=== PATIENT | male | born 1980 | race Caucasian/White ===

== ENCOUNTER 2016-07-30 17:07 | Emergency (ER) | payer OTHER ==
[~2016-07-30] VITALS: Ht 172.7 cm; Wt 87.5 kg
[2016-07-30 17:23] VITALS: Ht 172.7 cm; Wt 87.5 kg
[2016-07-30] MEDS ORDERED: ACETAMINOPHEN 325 MG TAB PO STA (19:44)
[2016-07-30] MEDS ORDERED: DIPHENHYDRAMINE 25 MG CAP PO ONE (20:00)
--- NOTE | 2016-07-30 20:32 | ERD ---
ER Documentation Chief Complaint Date/Time DATE: 07/30/16 TIME: 20:23 Chief Complaint BITE FROM INSECTS IN GROIN AND LEGS DARK COLORED URINE HPI This 36-year-old male patient presents to emergency department today for evaluation of multiple insect bite with associated erythema, edema, and tenderness. Patient reports that he moved into a new house which had not been habits he did not "a while". States he was working out in the yard and bitten by unknown insects bilateral feet lower extremities upper extremities and penis. Patient states that he was working in the yard yesterday and woke this morning with hand swelling, penis swelling, blisters on his feet. Patient states he wash with soap and water and some of the blisters open. He denies fever, chills, nausea, vomiting, patient denies dysuria, difficulty voiding, hematuria. Patient denies possibility of STD reports monogamous relationship for the last 9 months. Denies pruritus. ROS All systems reviewed and are negative except as per history of present illness. Allergies Allergies: Coded Allergies: No Known Allergy (Unverified , 04/28/14) PMhx/Soc History of Surgery: No Anesthesia Reaction: No Hx Neurological Disorder: No Hx Respiratory Disorders: No Hx Cardiac Disorders: Yes (htn) Hx Psychiatric Problems: No Hx Miscellaneous Medical Probl: Yes (dm) Hx Alcohol Use: No Hx Substance Use: No Hx Tobacco Use: Yes Smoking Status: Heavy tobacco smoker Physical Exam Vitals Vital Signs Date Time Temp Pulse Resp B/P Pulse Ox O2 Delivery O2 Flow Rate FiO2 07/30/16 19:10 113 159/95 07/30/16 17:23 98.5 119 18 180/106 98 Vitals stable, triage notes reviewed Physical Exam Const: Well-appearing, no acute distress Head: Atraumatic Eyes: Normal Conjunctiva PERRLA, EOMI ENT: Normal External Ears, Nose and Mouth. Neck: . Resp: Respirations even and unlabored, no respiratory Cardio: Abd: Abdomen symmetric, soft, nontender, no epigastric tenderness Male genitalia: Normal male genitalia, circumcised, left penile shaft with erythema, spongy edema, and firmness. Testicles distended normal. No hernia, no visible ulcer, papule. Skin: Bilateral feet with scattered red erythematous kirby, right foot presents with bulla open blister, red, bilateral upper and lower extremities with scattered red papules. Papules are soft, erythemic, tender to palpation, non-umbilicated, no discharge. Back: Ext: Neur: Awake and alert Psych: Normal Mood and Affect Result Diagram: 07/30/162024 Results 24 hrs Laboratory Tests Test 07/30/16 20:00 07/30/16 20:25 Urine Color YELLOW Urine Clarity SLIGHTLY CLOUDY Urine pH 7.0 Urine Specific Jones 1.018 Urine Ketones NEGATIVEmg/dL Urine Nitrite NEGATIVEmg/dL Urine Bilirubin NEGATIVEmg/dL Urine Urobilinogen NEGATIVEmg/dL Urine Leukocyte Esterase NEGATIVELeu/ul Urine Microscopic RBC 0/HPF Urine Microscopic WBC 1/HPF Urine Hemoglobin NEGATIVEmg/dL Urine Glucose NEGATIVEmg/dL Urine Total Protein NEGATIVEmg/dl White Blood Count 7.410^3/ul Red Blood Count 4.6910^6/ul Hemoglobin 13.8g/dl Hematocrit 42.2% Mean Corpuscular Volume 90.0fl Mean Corpuscular Hemoglobin 29.4pg Mean Corpuscular Hemoglobin Concent 32.7g/dl Red Cell Distribution Width 13.9% Platelet Count 52571^3/UL Mean Platelet Volume 10.6fl Neutrophils % 62.0% Lymphocytes % 26.5% Monocytes % 8.4% Eosinophils % 2.2% Basophils % 0.5% Nucleated Red Blood Cells % 0.0/100WBC Neutrophils # 4.610^3/ul Lymphocytes # 2.010^3/ul Monocytes # 0.610^3/ul Eosinophils # 0.210^3/ul Basophils # 0.010^3/ul Nucleated Red Blood Cells # 0.010^3/ul Current Medications Medications (Trade) Dose Ordered Sig/José Miguel Route PRN Reason Start Time Stop Time Status Last Admin Dose Admin Acetaminophen (Tylenol Tab) 650 mg ONCE STAT PO 07/30/16 19:44 07/30/16 19:50 DC 07/30/16 20:09 Diphenhydramine HCl (Benadryl) 25 mg ONCE ONCE PO 07/30/16 20:00 07/30/16 20:01 DC 07/30/16 20:09 Urinalysis negative for evidence of leukocytosis, nitrates, or microscopic hematuria Procedures/MDM This pleasant 36-year-old male patient presents to emergency department for evaluation of unknown insect bites. Patient reports he was cleaning out the backyard of a new house but has not been inhabited in quite some time. Patient reports being bitten on his feet and ankles legs thighs and penis. Correa- Noam syndrome, herpes zoster, herpes simplex virus 1 not suspected. Low suspicion for scabies, poison oak patient treated with Benadryl and Tylenol, CBC reveals no anemia or acute infection. Low suspicion for STI patient reports monogamous relationship 9 months. Discussed sending GC and chlamydia on urine patient agrees reports that would make his significant other feel better. Keflex 500 mg 1 tab p.o. 4 times daily 10 days. Hydrocortisone topical, Benadryl 25 mg as needed. Return to emergency department for worsening of symptoms, or if symptoms fail to improve as anticipated. Increase fluids, increase rest, monitor for fever and worsening of infection. Such as increased redness, tenderness, or discharge from infected area. I feel the patient is stable for discharge at this time with outpatient management and follow-up with primary care physician. I have discussed results, examination findings, the treatment plan with the patient and family present prior to discharge. Indications for emergent reevaluation, side effects of medication were also discussed. All questions were answered. Patient verbalizes understanding and agrees with plan of care. Departure Diagnosis: Primary Impression: Infected bite wound Condition: Good Patient Instructions: Insect Sting/Bite, Infected Additional Instructions: Thank you for for coming to [facility] for your care today. Please ask your nurse or provider if you have questions about your care today and do not leave until all your questions have been answered. Please use any medications given as directed and follow-up with your doctor (or the doctor you were referred to) in the next 2-3 days. If you do not have a primary care doctor you may follow up at the [facility] (listed below). You may also use motrin and tylenol as needed for fever and/or pain unless instructed otherwise by your provider or nurse. Indications for more urgent follow-up have been discussed, but you may return to the Emergency Department at ANY time for any worrisome or worsening symptoms. If you have abdominal pain, please know that no test or exam you received is perfect and you should follow up within 8 hours for continued pain. If you had any imaging studies today, such as an X-Ray or CT Scan, these studies will be reviewed later by a radiologist. You will be called if there are important findings that were not identified today, so make sure the contact information you provided at registration is correct. If you received any narcotic pain control medicine today, such as Vicodin, Morphine or Dilaudid, your coordination and judgment may be affected for a number of hours. Please do not drive or operate heavy machinery, and you may want someone to assist you at home. If you were given a prescription for narcotic medication, be aware that it is very addictive- use sparingly and only if necessary. GENIA YOU Jul 30, 2016 20:32
[2016-07-30 20:34] LABS: ADD SCAN DIFF NO
[2016-07-30 20:37] LABS: BASOPHILS % 0.5 % (0.0-2.0); EOSINOPHILS # 0.2 10^3/ul (0.0-0.5); EOSINOPHILS % 2.2 % (0.0-7.0); HEMATOCRIT 42.2 % (42.0-52.0); HEMOGLOBIN 13.8 g/dl (14.0-18.0); LYMPHOCYTES % 26.5 % (15.0-51.0); MEAN CORPUSCULAR HEMOGLOBIN 29.4 pg (29.0-33.0); MEAN CORPUSCULAR HGB CONC 32.7 g/dl (32.0-37.0); MEAN PLATELET VOLUME 10.6 fl (7.4-10.4); MONOCYTE # 0.6 10^3/ul (0.3-0.9); MONOCYTES % 8.4 % (0.0-11.0); NEUTROPHIL # 4.6 10^3/ul (1.6-7.5); PLATELET COUNT 243 10^3/UL (140-415); RED BLOOD COUNT 4.69 10^6/ul (4.70-6.10); RED CELL DISTRIBUTION WIDTH 13.9 % (11.5-14.5); WHITE BLOOD COUNT 7.4 10^3/ul (4.8-10.8)
[2016-07-30 20:44] LABS: ADD UMIC NO; UR ASCORBIC ACID NEGATIVE (NEGATIVE); UR BILIRUBIN (Dip) NEGATIVE (NEGATIVE); UR BLOOD (Dip) NEGATIVE (NEGATIVE); UR CLARITY SLIGHTLY CLOUDY (CLEAR); UR COLOR YELLOW (YELLOW); UR GLUCOSE (Dip) NEGATIVE (NEGATIVE); UR KETONES (Dip) NEGATIVE (NEGATIVE); UR LEUKOCYTE ESTERASE (Dip) NEGATIVE Leu/ul (NEGATIVE); UR NITRITE (Dip) NEGATIVE (NEGATIVE); UR RBC 0 /HPF (0-5); UR SPECIFIC GRAVITY (Dip) 1.018 (1.003-1.030); UR TOTAL PROTEIN (Dip) NEGATIVE (NEGATIVE); UR UROBILINOGEN (Dip) NEGATIVE (NEGATIVE)
[2016-07-30] MEDS ORDERED: CEPH-443 PO (22:21)
[2016-07-30] MEDS ORDERED: HC30CR25 TOP (22:22)
[2016-07-30 22:44] VITALS: BP 158/107; PULSE 84; RESP 16
== END 2016-07-30 22:45 | disposition home or self-care (01) ==
LOC: FTE 17:07
DX: S60.562A Insect bite (nonvenomous) of left hand, initial encounter (principal); S80.862A Insect bite (nonvenomous), left lower leg, initial encounter; S60.561A Insect bite (nonvenomous) of right hand, initial encounter; S80.861A Insect bite (nonvenomous), right lower leg, initial encounter; I10 Essential (primary) hypertension; E11.9 Type 2 diabetes mellitus without complications; F17.210 Nicotine dependence, cigarettes, uncomplicated; W57.XXXA Bitten or stung by nonvenomous insect and other nonvenomous arthropods, initial encounter; Y92.9 Unspecified place or not applicable
CPT/HCPCS: 81001; 81003; 85025; 87591; Z7610; 99283

== ENCOUNTER 2018-06-26 00:12 | Emergency (ER) | payer OTHER ==
[~2018-06-26] VITALS: Ht 154.9 cm; Wt 91.5 kg
[~2018-06-26 00:12] MED LIST: CEPH-443 PO; HC30CR25 TOP
[2018-06-26 00:17] VITALS: BP 145/65; PULSE 79; RESP 19; Ht 154.9 cm; Wt 91.5 kg
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
[2018-06-26] MEDS ORDERED: DIPHTH/TET/ACEL PERTUSS (ADULT) 0.5 ML VIAL IM* ONE (05:00)
[2018-06-26] MEDS ORDERED: IBUPROFEN 800 MG TAB PO ONE (05:00)
[2018-06-26] MEDS ORDERED: IBUP800T48 PO (06:13)
[2018-06-26] MEDS ORDERED: CYCL10TA7 PO (06:14)
== END 2018-06-26 06:49 | disposition left against medical advice (07) ==
LOC: FTE 00:12
DX: S20.219A Contusion of unspecified front wall of thorax, initial encounter (principal); S70.01XA Contusion of right hip, initial encounter; S70.02XA Contusion of left hip, initial encounter; I10 Essential (primary) hypertension; E11.9 Type 2 diabetes mellitus without complications; F17.210 Nicotine dependence, cigarettes, uncomplicated; S30.810A Abrasion of lower back and pelvis, initial encounter; V86.56XA Driver of dirt bike or motor/cross bike injured in nontraffic accident, initial encounter; Y92.9 Unspecified place or not applicable; Z23 Encounter for immunization
CPT/HCPCS: 71046; 73520; 90715; Z7610; 90471